=== PATIENT | female | born 1935 | race Caucasian/White ===

== ENCOUNTER → 2017-08-25 09:49 | Outpatient (CLI) | payer MEDICARE, SELFPAY ==
[2017-08-05 09:06] VITALS: BP 112/58; BMI 21.2
--- NOTE | 2017-08-25 09:51 | ECHOD_ITS ---
Reason For Study: bicuspid aortic valve Procedure This was a 2D Doppler, Color Flow transthoracic echocardiogram. Exam performed in department. Left Ventricle Normal LV size. Left ventricular systolic function is normal. The estimated ejection fraction is 60 %. Transmitral diastolic flow velocities suggest mild (stage 1) diastolic dysfunction (reversed pattern). No regional wall motion abnormalities noted. Right Ventricle Normal RV size. Normal systolic function. Atria Normal left atrium. Normal right atrium. Mitral Valve Mild mitral valve prolapse, posterior leaflet. Mild (1+) eccentric mitral valve insufficiency. Tricuspid Valve Normal tricuspid valve. Mild (1+) tricuspid valve insufficiency. Pulmonary artery systolic pressure is 30 mmHg. Aortic Valve Trisinus/trileaflet aortic valve. Mild focal aortic valve calcification. Trivial aortic valve insufficiency. Pulmonic Valve Normal pulmonic valve. Great Vessels Normal aortic root. The pulmonary artery is normal size. Normal inferior vena cava. Pericardium/Pleural No pericardial effusion. MMode/2D Measurements & Calculations LVIDd: 4.0 cm IVSd: 0.84 cm LVOT diam: 2.0 cm LVIDs: 2.7 cm LVPWd: 0.86 cm LVOT area: 3.1 cm2 RVDd: 3.0 cm FS: 32.7 % LA dimension: 3.3 cm LAV(MOD-bp): 38.1 ml LA A4 area: 13.6 cm2 LAV(MOD-bp) Indexed: 25.0 ml/m2 LAV(MOD-sp2): 45.2 ml LAV(MOD-sp4): 30.5 ml RA A4 area: 13.4 cm2 Time Measurements MV dec time: 0.18 sec Doppler Measurements & Calculations MV E max indra: 93.4 cm/sec Lat Peak E' Indra: 7.5 cm/sec Med Peak E' Indra: 7.7 cm/sec MV A max indra: 104.6 cm/sec E/E' lat: 12.5 E/E' med: 12.1 MV E/A: 0.89 Ao V2 max: 179.3 cm/sec LV V1 max: 98.9 cm/sec SV(LVOT): 67.6 ml Ao max P.9 mmHg LV V1 max P.9 mmHg Ao V2 mean: 124.6 cm/sec LV V1 mean P.9 mmHg Ao mean P.9 mmHg LV V1 mean: 64.8 cm/sec Ao V2 VTI: 40.1 cm LV V1 VTI: 22.0 cm SUKHDEEP(I,D): 1.7 cm2 SUKHDEEP(V,D): 1.7 cm2 PA V2 max: 67.0 cm/sec TR max indra: 257.6 cm/sec TR max P.6 mmHg Interpretation Summary Normal LV size. Left ventricular systolic function is normal. The estimated ejection fraction is 60 %. Transmitral diastolic flow velocities suggest mild (stage 1) diastolic dysfunction (reversed pattern). Mild mitral valve prolapse, posterior leaflet Mild (1+) eccentric mitral valve insufficiency. Ordering Physician: Charles Sandy Referring Physician: Dakotah Lester Performed By: Lazara Willis, LESLYE, RVT
== END ==
PROVIDERS: Family Provider Family Medicine; PCP Family Medicine; Visit Provider Internal Medicine Cardiovascular Disease
DX: R94.31 Abnormal electrocardiogram [ECG] [EKG] (principal)
CPT/HCPCS: 93306

== ENCOUNTER → 2018-04-13 06:48 | Outpatient (CLI) | payer MEDICARE, SELFPAY ==
[2018-04-13 08:21] LABS: Absolute Lymphocyte Count 2.82 X10^3/ul (0.83-4.51); Absolute Neutrophil Count 2.7 X10^3/uL (2.0-7.7); Basophil# 0.03 X10^3/uL; Basophil% 0.5 % (0-1); Eosinophil# 0.12 X10^3/uL; Eosinophils% 1.9 % (0-5); Hematocrit 41.7 % (37-47); Hemoglobin 13.3 g/dl (12.0-15.0); Lymphocyte # 2.82 X10^3/ul (4.0); Mean Corp Hgb Conc 31.9 g/gl (32-36); Mean Corpuscular Hgb 30.2 pg (27.0-32.0); Mean Corpuscular Volume 94.6 fL (81-99); Mean Platelet Vol. 9.1 fl (6.2-12.0); Monocyte# 0.63 X10^3/uL; Neutrophil # 2.66 X10^3/uL (2.7-7.7); Neutrophil % 42.4 % (47-70); POSITIVE COUNT NO; POSITIVE DIFFERENTIAL NO; POSITIVE MORPHOLOGY NO; Platelet Count 285 K/mm3 (150-450); RBC Distribution Width CV 12.6 % (11.6-14.6); RBC Distribution Width SD 43.2 fl (35.1-43.9); Red Blood Count 4.41 M/mm3 (4.2-5.4); White Blood Count 6.3 K/mm3 (4.4-11.0)
[2018-04-13 08:33] LABS: Microalbumin,Random Urine 5.5 mg/L (NO RANGE EST.); Microalbumin:Creatinine Ratio 10.6 mg/g CRE (<30 mg/g CRE)
[2018-04-13 09:03] LABS: ALB/GLOB Ratio 0.9 RATIO (0.9-2.4); AST(SGOT) 23 U/L (15-37); Alanine Aminotransfer ALT/SGPT 24 U/L (13-56); Albumin, Serum 3.6 g/dL (3.2-5.0); Alkaline Phosphatase 103 U/L (45-117); Anion Gap 9 (5-15); BUN 18 mg/dL (7-18); BUN/Creat Ratio 17.6 RATIO (10-20); Calcium,Total 9.3 mg/dL (8.5-10.1); Chloride 100 mmol/L (98-107); Cholesterol 273 mg/dL (200); Creatinine, Serum 1.02 mg/dL (0.55-1.02); EST Glomerular Filtration Rate 55 mL/min (>60); Est Glom Filt Rate - Afr Amer 67 mL/min (>60); Glucose 87 mg/dL (74-106); High Density Lipoprotein 93 mg/dL; Potassium 3.8 mmol/L (3.5-5.1); Protein, Total 7.6 g/dL (6.4-8.2); Sodium Level 140 mmol/L (136-145); T4 Free Direct 0.87 ng/dL (0.76-1.46); Thyroid Stim Hormone (TSH) 5.41 uIU/mL (0.358-3.74); Triglycerides 116 mg/dL; Very Low Density Lipoprotein 23 mg/dL (5-40)
== END ==
PROVIDERS: Family Provider Family Medicine; PCP Family Medicine; Referring Provider Family Medicine; Visit Provider Family Medicine
DX: I10 Essential (primary) hypertension (principal); E03.9 Hypothyroidism, unspecified; E78.5 Hyperlipidemia, unspecified
CPT/HCPCS: 36415; 80053; 80061; 82043; 82570; 84439; 84443; 85025

== ENCOUNTER → 2018-04-15 13:51 | Outpatient (CLI) | payer MEDICARE, SELFPAY ==
--- NOTE | 2018-04-15 13:54 | BD_ITS ---
STUDY: DUAL ENERGY X-RAY ABSORPTIOMETRY / DXA REASON FOR EXAM: Female, 82 years old. The patient is postmenopausal. Loss of height. TECHNIQUE: Bone Mineral Density (BMD) measurements of lumbar spine and bilateral hips were obtained. COMPARISON: Comparison is made with prior study dated August 04, 2013. FINDINGS: Lumbar Spine (L1-L4): g/cm2 (0.980) / T-score (-1.8) / Z-score (0.1) Findings are suggestive of osteopenia with a moderate fracture risk. Left Femur Total: g/cm2 (0.868) / T-score (-1.1) / Z-score (1.1) Left Femoral Neck: g/cm2 (0.791) / T-score (-1.8) / Z-score (0.5) Right Femur Total: g/cm2 (0.814) / T-score (-1.5) / Z-score (0.7) Right Femoral Neck: g/cm2 (0.761) / T-score (-2.0) / Z-score (0.3) The T-Scores on the most recent prior examination were: Lumbar Spine (L1-L4): There has been improvement of bone density since the previous examination. Left Femur Total: which represents a worsening of 4.6%. Right Femur Total: which represents a worsening of 4.3%. BD/Dexa Bone Density Study IMPRESSION: The patient is considered osteopenic as outlined below according to World Td Organization (WHO) criteria with a moderate fracture risk. There has been worsening of bone density since the previous examination. Reference Information: The T-score is the number of standard deviations above or below the standard which is normal for young adults at their peak bone mineral density. The World Health Organization (WHO) interprets the T-scores as follows: Above -1 Normal bone density Between -1 and -2.5 Osteopenia Equal to / or below -2.5 Osteoporosis As a practical clinical guideline, osteopenia may be graded as follows: Mild -1 through -1.5 Moderate -1.6 through -2.0 Severe -2.1 through -2.4 The Z-score is the number of standard deviations above or below age-matched controls. A Z-score of less than -1.5 would be considered abnormal. References: 1. NIH Osteoporosis and Related Bone Diseases http://www.osteo.org 2. International Society for Clinical Densitometry http://www.iscd.org 3. National Osteoporosis Foundation http://www.nof.org Electronically Signed: Juan Gill MD at 15:19 EDT Tel [phone], Service support ,
== END ==
PROVIDERS: Family Provider Family Medicine; PCP Family Medicine; Referring Provider Family Medicine; Visit Provider Family Medicine
DX: Z78.0 Asymptomatic menopausal state (principal); M85.80 Other specified disorders of bone density and structure, unspecified site
CPT/HCPCS: 77080

== ENCOUNTER → 2018-05-17 10:25 | Outpatient (CLI) | payer MEDICARE, SELFPAY ==
[2017-08-05 09:06] VITALS: BMI 21.2
--- NOTE | 2018-05-17 10:30 | RAD_ITS ---
STUDY: X-RAY CHEST REASON FOR EXAM: Female, 82 years old. Cough TECHNIQUE: PA and lateral COMPARISON: 02/17/2017 FINDINGS: The lungs are clear and expanded. There is no demonstrated pleural abnormality. Normal size heart. Normal mediastinum and yessi. Normal visualized pulmonary arteries. There is atherosclerotic calcification of the aortic arch with tortuosity. Normal visualized thoracic spine. Normal visualized ribs, clavicles, and shoulders. There is no demonstrated abnormality of the visualized soft tissue structures of the upper abdomen. RAD/Chest PA and Lateral IMPRESSION: The lungs are clear and expanded. There is no demonstrated pleural abnormality. Normal size heart. Electronically Signed: Eric Shipley MD at 7:24 EST , Service support ,
== END ==
PROVIDERS: Family Provider Family Medicine; PCP Family Medicine; Referring Provider Family Medicine; Visit Provider Family Medicine
DX: J18.9 Pneumonia, unspecified organism (principal)
CPT/HCPCS: 71046

== ENCOUNTER → 2018-08-05 09:48 | Outpatient (CLI) | payer MEDICARE, SELFPAY ==
[2018-08-05 09:15] VITALS: BMI 21.5
[2018-08-05 11:39] LABS: BNP,B-Type NATRIURETIC PEPTIDE 21.8 pg/mL (0-100)
== END ==
PROVIDERS: Family Provider Family Medicine; PCP Family Medicine; Referring Provider Internal Medicine Cardiovascular Disease; Visit Provider Internal Medicine Cardiovascular Disease
DX: R06.00 Dyspnea, unspecified (principal); I10 Essential (primary) hypertension
CPT/HCPCS: 36415; 83880

== ENCOUNTER → 2019-02-25 11:49 | Outpatient (CLI) | payer MEDICARE, SELFPAY ==
[2018-08-05 09:15] VITALS: BMI 21.5
--- NOTE | 2019-02-25 12:17 | BI_ITS ---
MAMMOGRAPHY - BILATERAL SCREENING REASON FOR EXAM: Female, 83 years old. Routine annual screening examination. PERTINENT HISTORY: Non-contributory. Remote right stereotactic breast biopsy and right excisional breast biopsy. 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 TECHNIQUE: Digital bilateral breast ramón (3D mammographic acquisition) in the CC and MLO projections. 2-D mediolateral oblique (MLO) and craniocaudad (CC) views of both breasts were obtained. CAD: Full Field Digital Mammography with Computer Added Detection was performed. COMPARISON: Comparison is made with prior examination dated February 24, 2017 and March 09, 2015. FINDINGS: Breast Composition: The breasts are heterogeneously dense, which may obscure small masses. Stable asymmetry of breast tissue where the left breast is smaller than the right. A tissue clip marker is once again seen in the deep central slightly medial aspect of the right breast. There are no dominant masses or suspicious calcifications. No other significant abnormalities are identified. There has been no significant change since the prior study. BI/SCREEN MAMM (CAD) W/RAMÓN BILAT IMPRESSION: Stable bilateral screening mammogram. Yearly follow-up mammogram recommended. (A) ASSESSMENT CATEGORY: BIRADS Category 2: Benign. A letter regarding these results will be sent to the patient by the facility within 30 days. Approximately 10% of breast cancers are not detected by mammography. A normal mammogram should not delay biopsy of a clinically suspicious abnormality. [id number] Electronically Signed: Juan Gill, at 13:36 EDT , Service support ,
== END ==
PROVIDERS: Family Provider Family Medicine; PCP Family Medicine; Referring Provider Surgery; Visit Provider Surgery
DX: Z12.31 Encounter for screening mammogram for malignant neoplasm of breast (principal)
CPT/HCPCS: 77063; 77067

== ENCOUNTER → 2019-03-21 12:57 | Outpatient (CLI) | payer MEDICARE, SELFPAY ==
[2019-03-16 07:59] VITALS: BMI 21.5
== END ==
PROVIDERS: Family Provider Family Medicine; PCP Family Medicine; Referring Provider Surgery; Visit Provider Surgery
DX: Z12.11 Encounter for screening for malignant neoplasm of colon (principal)
CPT/HCPCS: 82274

== ENCOUNTER → 2019-04-15 07:24 | Outpatient (CLI) | payer MEDICARE, SELFPAY ==
[2019-03-16 07:59] VITALS: BMI 21.5
[2019-04-15 08:18] LABS: Absolute Neutrophil Count 2.5 X10^3/uL (2.0-7.7); Basophil# 0.03 X10^3/uL; Basophil% 0.6 % (0-1); Eosinophils% 1.8 % (0-5); Hematocrit 43.4 % (37-47); Lymphocyte % 42.3 % (19-41); Mean Corp Hgb Conc 32.3 g/dL (32-36); Mean Corpuscular Hgb 30.2 pg (27.0-32.0); Mean Corpuscular Volume 93.5 fL (81-99); Mean Platelet Vol. 9.2 fl (6.2-12.0); Monocyte# 0.54 X10^3/uL; Monocyte% 9.9 % (0-10); NRBC Flagged by Analyzer 0 % (0-5); Neutrophil # 2.46 X10^3/uL (2.7-7.7); Neutrophil % 45.2 % (47-70); Platelet Count 304 K/mm3 (150-450); RBC Distribution Width CV 11.8 % (11.6-14.6); RBC Distribution Width SD 40.4 fl (35.1-43.9); Red Blood Count 4.64 M/mm3 (4.2-5.4); White Blood Count 5.4 K/mm3 (4.4-11.0)
[2019-04-15 08:41] LABS: AST(SGOT) 20 U/L (15-37); Alanine Aminotransfer ALT/SGPT 23 U/L (13-56); Albumin, Serum 3.8 g/dL (3.2-5.0); Alkaline Phosphatase 119 U/L (45-117); Anion Gap 5 (5-15); BUN 19 mg/dL (7-18); BUN/Creat Ratio 21.5 RATIO (10-20); Calcium,Total 9.3 mg/dL (8.5-10.1); Chloride 100 mmol/L (98-107); Cholesterol 254 mg/dL (200); Creatinine, Serum 0.88 mg/dL (0.55-1.02); EST Glomerular Filtration Rate 65 mL/min (>60); Est Glom Filt Rate - Afr Amer 78 mL/min (>60); Globulin 3.7 g/dL (2.2-4.2); Glucose 96 mg/dL (74-106); High Density Lipoprotein 89 mg/dL; Protein, Total 7.5 g/dL (6.4-8.2); Sodium Level 137 mmol/L (136-145); T4 Free Direct 1.21 ng/dL (0.76-1.46); Thyroid Stim Hormone (TSH) 0.08 uIU/mL (0.358-3.74); Triglycerides 139 mg/dL; Very Low Density Lipoprotein 28 mg/dL (5-40)
== END ==
PROVIDERS: Family Provider Family Medicine; PCP Family Medicine; Referring Provider Family Medicine; Visit Provider Family Medicine
DX: E78.5 Hyperlipidemia, unspecified (principal); E03.9 Hypothyroidism, unspecified; E55.9 Vitamin D deficiency, unspecified
CPT/HCPCS: 36415; 80053; 80061; 83735; 84439; 84443; 85025

== ENCOUNTER → 2019-07-19 07:39 | Outpatient (CLI) | payer MEDICARE, SELFPAY ==
[2019-03-16 07:59] VITALS: BMI 21.5
[2019-07-19 09:27] LABS: Cholesterol 278 mg/dL (200); Free T3 3.4 pg/mL (2.18-3.98); High Density Lipoprotein 99 mg/dL; T4 Free Direct 1.24 ng/dL (0.76-1.46); Thyroid Stim Hormone (TSH) 0.28 uIU/mL (0.358-3.74); Triglycerides 134 mg/dL; Very Low Density Lipoprotein 27 mg/dL (5-40)
== END ==
PROVIDERS: PCP Family Medicine; Referring Provider Family Medicine; Visit Provider Family Medicine
DX: Z00.00 Encounter for general adult medical examination without abnormal findings (principal); E03.9 Hypothyroidism, unspecified
CPT/HCPCS: 36415; 80061; 84439; 84443; 84481

== ENCOUNTER → 2019-10-17 06:42 | Outpatient (CLI) | payer MEDICARE, SELFPAY ==
[2019-08-09 08:40] VITALS: BMI 21.4
[2019-10-17 08:00] LABS: T4 Free Direct 1.15 ng/dL (0.76-1.46); Thyroid Stim Hormone (TSH) 0.81 uIU/mL (0.358-3.74)
== END ==
PROVIDERS: PCP Family Medicine; Referring Provider Family Medicine; Visit Provider Family Medicine
DX: E03.9 Hypothyroidism, unspecified (principal)
CPT/HCPCS: 36415; 84439; 84443

== ENCOUNTER → 2020-01-23 14:46 | Outpatient (CLI) | payer MEDICARE, SELFPAY ==
[2019-08-09 08:40] VITALS: BMI 21.4
[2020-01-23 17:54] LABS: Absolute Lymphocyte Count 1.96 X10^3/uL (0.83-4.51); Absolute Neutrophil Count 3.7 X10^3/uL (2.0-7.7); Basophil# 0.04 X10^3/uL; Basophil% 0.6 % (0-1); Eosinophil# 0.04 X10^3/uL; Eosinophils% 0.6 % (0-5); Hematocrit 38.8 % (37-47); Hemoglobin 12.2 g/dL (12.0-15.0); Lymphocyte # 1.96 X10^3/ul (4.0); Lymphocyte % 31.4 % (19-41); Mean Corp Hgb Conc 31.4 g/dL (32-36); Mean Corpuscular Hgb 30.7 pg (27.0-32.0); Mean Corpuscular Volume 97.7 fL (81-99); Mean Platelet Vol. 9.4 fl (6.2-12.0); Monocyte# 0.48 X10^3/uL; Monocyte% 7.7 % (0-10); NRBC Flagged by Analyzer 0 % (0-5); Neutrophil # 3.71 X10^3/uL (2.7-7.7); Neutrophil % 59.4 % (47-70); Platelet Count 310 K/mm3 (150-450); RBC Distribution Width CV 12.4 % (11.6-14.6); RBC Distribution Width SD 44.4 fl (35.1-43.9); Red Blood Count 3.97 M/mm3 (4.2-5.4); White Blood Count 6.3 K/mm3 (4.4-11.0)
[2020-01-23 18:15] LABS: Vitamin D,25 Hydroxy 58.7 ng/mL
[2020-01-23 18:22] LABS: Microalbumin,Random Urine < 5.0 mg/L (NO RANGE EST.)
[2020-01-23 18:32] LABS: ALB/GLOB Ratio 0.9 RATIO (0.9-2.4); AST(SGOT) 16 U/L (15-37); Alanine Aminotransfer ALT/SGPT 23 U/L (13-56); Albumin, Serum 3.5 g/dL (3.2-5.0); Alkaline Phosphatase 106 U/L (45-117); Anion Gap 4 (5-15); BUN 16 mg/dL (7-18); BUN/Creat Ratio 17.8 RATIO (10-20); Calcium,Total 9.1 mg/dL (8.5-10.1); Chloride 101 mmol/L (98-107); EST Glomerular Filtration Rate 63 mL/min (>60); Est Glom Filt Rate - Afr Amer 77 mL/min (>60); Globulin 3.8 g/dL (2.2-4.2); Glucose 103 mg/dL (74-106); Potassium 3.9 mmol/L (3.5-5.1); Protein, Total 7.3 g/dL (6.4-8.2); Sodium Level 136 mmol/L (136-145); T4 Total, Thyroxin 9.7 ug/dL (4.8-13.9); Thyroid Stim Hormone (TSH) 1.56 uIU/mL (0.358-3.74)
[2020-01-26 15:32] LABS: Zinc, Plasma or Serum 68 ug/dL (56-134)
== END ==
PROVIDERS: PCP Family Medicine; Referring Provider Family Medicine; Visit Provider Family Medicine
DX: I10 Essential (primary) hypertension (principal); E03.9 Hypothyroidism, unspecified; M85.80 Other specified disorders of bone density and structure, unspecified site
CPT/HCPCS: 36415; 80053; 82043; 82306; 82570; 84436; 84443; 84630; 85025

== ENCOUNTER → 2020-02-29 08:14 | Outpatient (CLI) | payer MEDICARE, SELFPAY ==
[2019-08-09 08:40] VITALS: BMI 21.4
--- NOTE | 2020-02-29 08:14 | BI_ITS ---
MAMMOGRAPHY - BILATERAL SCREENING REASON FOR EXAM: Female, 84 years old. Routine annual screening examination. 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 Prior right excisional breast biopsy and stereotactic breast biopsy. TECHNIQUE: Digital bilateral breast ramón (3D mammographic acquisition) in the CC and MLO projections. 2-D mediolateral oblique (MLO) and craniocaudad (CC) views of both breasts were obtained. CAD: Full Field Digital Mammography with Computer Added Detection was performed. COMPARISON: Comparison is made with prior examination dated 02/25/2019. FINDINGS: Breast Composition: Stable breast asymmetry with more breast tissue is seen in the right breast as compared to the left side. There is heterogeneous density of the right breast. A tissue clip marker is once again seen in the deep central slightly medial portion of the right breast. There are no dominant masses or suspicious calcifications. No other significant abnormalities are identified. There has been no significant change since the prior study. BI/SCREEN MAMM (CAD) W/RAMÓN BILAT IMPRESSION: Stable bilateral screening mammogram. Yearly follow-up mammogram recommended. (A) ASSESSMENT CATEGORY: BIRADS Category 2: Benign. A letter regarding these results will be sent to the patient by the facility within 30 days. Approximately 10% of breast cancers are not detected by mammography. A normal mammogram should not delay biopsy of a clinically suspicious abnormality. [id number] Electronically Signed: Juan Gill, at 9:10 EDT , Service support ,
== END ==
PROVIDERS: PCP Family Medicine; Referring Provider Surgery; Visit Provider Surgery
DX: Z12.31 Encounter for screening mammogram for malignant neoplasm of breast (principal)
CPT/HCPCS: 77063; 77067

== ENCOUNTER → 2020-05-18 16:40 | Outpatient (CLI) | payer MEDICARE, SELFPAY ==
[2020-03-06 05:30] VITALS: BMI 21.4
== END ==
PROVIDERS: PCP Family Medicine; Visit Provider Family Medicine
DX: U07.1 COVID-19 (principal)
CPT/HCPCS: 87635; U0003

== ENCOUNTER → 2020-07-13 07:12 | Outpatient (CLI) | payer MEDICARE, SELFPAY ==
[2020-03-06 05:30] VITALS: BMI 21.4
[2020-07-13 10:08] LABS: AST(SGOT) 13 U/L (15-37); Alanine Aminotransfer ALT/SGPT 22 U/L (13-56); Albumin, Serum 3.8 g/dL (3.2-5.0); Alkaline Phosphatase 113 U/L (45-117); Anion Gap 4 (5-15); BUN 21 mg/dL (7-18); BUN/Creat Ratio 23.4 RATIO (10-20); Calcium,Total 9.6 mg/dL (8.5-10.1); Chloride 101 mmol/L (98-107); EST Glomerular Filtration Rate 63 mL/min (>60); Est Glom Filt Rate - Afr Amer 77 mL/min (>60); Globulin 3.8 g/dL (2.2-4.2); Glucose 85 mg/dL (74-106); Potassium 3.9 mmol/L (3.5-5.1); Protein, Total 7.6 g/dL (6.4-8.2); Sodium Level 137 mmol/L (136-145)
[2020-07-13 10:25] LABS: Microalbumin,Random Urine 5.3 mg/L (NO RANGE EST.); Microalbumin:Creatinine Ratio 8.5 mg/g CRE (<30 mg/g CRE)
== END ==
PROVIDERS: PCP Family Medicine; Referring Provider Family Medicine; Visit Provider Family Medicine
DX: I10 Essential (primary) hypertension (principal)
CPT/HCPCS: 36415; 80053; 82043; 82570

== ENCOUNTER → 2021-01-04 07:13 | Outpatient (CLI) | payer MEDICARE, SELFPAY ==
[2020-08-14 07:28] VITALS: BMI 21.7
[2021-01-04 10:25] LABS: ALB/GLOB Ratio 1.1 RATIO (0.9-2.4); AST(SGOT) 24 U/L (15-37); Alanine Aminotransfer ALT/SGPT 23 U/L (13-56); Albumin, Serum 3.5 g/dL (3.2-5.0); Alkaline Phosphatase 105 U/L (45-117); Anion Gap 9 (5-15); BUN 19 mg/dL (7-18); BUN/Creat Ratio 20.2 RATIO (10-20); Calcium,Total 8.9 mg/dL (8.5-10.1); Chloride 96 mmol/L (98-107); Cholesterol 254 mg/dL (200); Creatinine, Serum 0.94 mg/dL (0.55-1.02); EST Glomerular Filtration Rate 60 mL/min (>60); Est Glom Filt Rate - Afr Amer 73 mL/min (>60); Globulin 3.3 g/dL (2.2-4.2); Glucose 86 mg/dL (74-106); High Density Lipoprotein 89 mg/dL; Potassium 4.3 mmol/L (3.5-5.1); Protein, Total 6.8 g/dL (6.4-8.2); Sodium Level 135 mmol/L (136-145); T4 Free Direct 1.06 ng/dL (0.76-1.46); Thyroid Stim Hormone (TSH) 7.15 uIU/mL (0.358-3.74); Triglycerides 163 mg/dL; Very Low Density Lipoprotein 33 mg/dL (5-40)
== END ==
PROVIDERS: PCP Family Medicine; Referring Provider Family Medicine; Visit Provider Family Medicine
DX: E03.9 Hypothyroidism, unspecified (principal); E78.5 Hyperlipidemia, unspecified; G25.81 Restless legs syndrome
CPT/HCPCS: 36415; 80053; 80061; 84439; 84443

== ENCOUNTER 2021-02-06 14:00 | Outpatient (RCR) | payer MEDICARE, SELFPAY ==
[2020-08-14 07:28] VITALS: BMI 21.7
--- NOTE | 2021-01-23 15:22 | HP.PTEVAL ---
Patient's Visit Information MICHAEL PARADA is a 85 year old F referred to Physical Therapy by Dr. Dakotah Lester MD with a diagnosis of LBP. Date of Evaluation: 01/23/21 Physical Therapist: Live Banks, PT, ATC - Visit Plan Frequency: 1x/Week Duration: 3 Weeks Plan: Instruct pt on HEP of core strengthening over the next 2-3 visits - Subjective Pt reports she has had LBP several times in the past, but had surgery which always helped. Pt notes this episode began in June of 2020. Pt reports she was house cleaning and believes this may have caused her pain. Pt reports the doctor gave her meds and ex's at that time and the pain went away. However, her pain returned severely in November and so she started doing her ex's and the pain eventually went away. Pt reports she has been pain free for about one week now, but she doesnt want the pain to return so she came to therapy today to get started on some strengthening ex's to make sure this pain doesnt return. No LE tingling or numbness in LE's at this time. No sleep difficulty secondary to the pain. Pt has 0/10 pain this date. - Pain LBP Pain Intensity (Out of 10): 0 - Objective Neuro: B LE sensation is WNL to light touch. B achilles reflex= 2/3. MMT: B LE's are grossly 5/5 throughout. ROM: Pt is severely limited with ext ROM. All other ranges are WNL. Repeated movements: SKTC/DKTC 10 sec x 3 reps ea felt good today. Gait: Pt is able to ambulate greater than 600' without difficulty - Goals Goal 1:: Decrease LBP x 50% to aid with sleep Goal Time Frame: 4-6 Weeks Goal 2:: Increase core strengthening x 1 grade to prevent future episodes of LBP Goal Time Frame: 4-6 Weeks Goal 3:: I with HEP Goal Time Frame: 4-6 Weeks - Rehabilitation Potential Physical Therapy Diagnosis: Pt has LBP and difficulty with IADL's secondary to degenerative changes of the L/S Rehabilitation Potential: Good - Anticipated Interventions Patient/Client Instruction: Educate patient on: Condition, Plan of Care For the Purpose of:: To improve self management Therapeutic Exercise to Include: Strength training, Endurance training, Postural training, Dynamic Lumbar Stabilization For the Purpose of:: To decrease pain, To improve muscle performance and motor function Thank you for the opportunity to evaluate your patient. For Medicare and Medicare HMO plans, please review the plan of care and approve it. It will need to be FAXED BACK to us at [phone] for Medicare purposes. For Medicare only, by signing this I certify the plan of care. Please let me know if there are questions or concerns regarding this plan of care. Physician Signature: Date:
--- NOTE | 2021-02-06 14:56 | HP.PTDCSUM ---
It has been my pleasure to treat MICHAEL PARADA referred by Dr. Dakotah Lester MD, with the diagnosis of LBP for a total of 3 visit(s). Discharge Date: Please see the following information for a summary of their discharge status. Subjective: I dont have any pain today. I am ready to be discharged LBP Pain Intensity (Out of 10): 0 % Improvement: 75 Objective/Function: Pt is now I with HEP. Rx goals achieved Goal 1:: Decrease LBP x 50% to aid with sleep Goal Progress: Goal Met Goal 2:: Increase core strengthening x 1 grade to prevent future episodes of LBP Goal Progress: Progressing Goal 3:: I with HEP Goal Progress: Goal Met Plan: Discharge If there are questions or concerns regarding this patient's physical therapy, please feel free to call me at [phone]. Thank you for the referral of this patient. Sincerely, Live Banks, PT, ATC Balance/Gait/Functional tests - Balance/Special Test Scores Lower Extremity Functional Score: 73
== END 2021-02-06 19:00 | disposition home or self-care (01) ==
LOC: PT 14:00
PROVIDERS: PCP Family Medicine; Referring Provider Family Medicine; Visit Provider Family Medicine
DX: R29.3 Abnormal posture (principal); R45.1 Restlessness and agitation
CPT/HCPCS: 97110; 97161

== ENCOUNTER → 2021-02-27 08:38 | Outpatient (CLI) | payer MEDICARE, SELFPAY ==
[2021-02-27 10:50] LABS: Ferritin 106 ng/mL (8-252); Free T3 3.2 pg/mL (2.18-3.98); T4 Free Direct 1.18 ng/dL (0.76-1.46); Thyroid Stim Hormone (TSH) 0.76 uIU/mL (0.358-3.74)
== END ==
PROVIDERS: PCP Family Medicine; Referring Provider Family Medicine; Visit Provider Family Medicine
DX: G25.81 Restless legs syndrome (principal); E03.9 Hypothyroidism, unspecified
CPT/HCPCS: 36415; 82728; 84439; 84443; 84481

== ENCOUNTER → 2021-04-22 | Outpatient (CLI) | payer MEDICARE, SELFPAY | END | disposition home or self-care (01) | PROVIDERS: PCP Family Medicine; Visit Provider Family Medicine | DX: Z20.822 Contact with and (suspected) exposure to COVID-19 (principal) | CPT/HCPCS: 87633; 87635; U0005; U0003 ==

== ENCOUNTER 2021-09-23 07:39 | Outpatient (CLI) | payer MEDICARE, SELFPAY ==
[2021-09-23 08:11] LABS: Hematocrit 40.7 % (37-47); Hemoglobin 13.5 g/dL (12.0-15.0); Mean Corp Hgb Conc 33.2 g/dL (32-36); Mean Corpuscular Hgb 29.9 pg (27.0-32.0); Mean Platelet Vol. 8.8 fl (6.2-12.0); Platelet Count 284 K/mm3 (150-450); RBC Distribution Width CV 11.9 % (11.6-14.6); RBC Distribution Width SD 39.5 fl (35.1-43.9); Red Blood Count 4.52 M/mm3 (4.2-5.4); White Blood Count 4.8 K/mm3 (4.4-11.0)
[2021-09-23 08:32] LABS: Microalbumin,Random Urine 5.3 mg/L (NO RANGE EST.); Microalbumin:Creatinine Ratio 5.2 mg/g CRE (<30 mg/g CRE)
[2021-09-23 08:53] LABS: ALB/GLOB Ratio 0.9 RATIO (0.9-2.4); AST(SGOT) 19 U/L (15-37); Alanine Aminotransfer ALT/SGPT 20 U/L (13-56); Albumin, Serum 3.5 g/dL (3.2-5.0); Alkaline Phosphatase 125 U/L (45-117); Anion Gap 2 (5-15); BUN 15 mg/dL (7-18); BUN/Creat Ratio 15.3 RATIO (10-20); Calcium,Total 9.4 mg/dL (8.5-10.1); Chloride 100 mmol/L (98-107); Creatinine, Serum 0.98 mg/dL (0.55-1.02); EST Glomerular Filtration Rate 57 mL/min (>60); Est Glom Filt Rate - Afr Amer 69 mL/min (>60); Glucose 100 mg/dL (74-106); Potassium 3.8 mmol/L (3.5-5.1); Protein, Total 7.5 g/dL (6.4-8.2); Sodium Level 136 mmol/L (136-145); T4 Free Direct 1.14 ng/dL (0.76-1.46); Thyroid Stim Hormone (TSH) 1.27 uIU/mL (0.358-3.74)
== END 2021-09-23 23:59 | disposition home or self-care (01) ==
LOC: LAB 07:41
PROVIDERS: PCP Family Medicine; Referring Provider Family Medicine; Visit Provider Family Medicine
DX: I10 Essential (primary) hypertension (principal); E03.9 Hypothyroidism, unspecified; G25.81 Restless legs syndrome
CPT/HCPCS: 36415; 80053; 82043; 82570; 84439; 84443; 85027

== ENCOUNTER 2021-10-10 07:46 | Outpatient (CLI) | payer MEDICARE, SELFPAY ==
--- NOTE | 2021-10-10 07:49 | ECHOD_ITS ---
Reason For Study: MVP Procedure This was a 2D Doppler, Color Flow transthoracic echocardiogram. Exam performed in department. Left Ventricle Normal LV size. Left ventricular systolic function is normal. The estimated ejection fraction is 55 %. Stage 1 diastolic dysfunction. No regional wall motion abnormalities noted. Right Ventricle Normal RV size. Normal systolic function. Atria Normal left atrium. Normal right atrium. Mitral Valve Bileaflet diffuse mitral valve thickening. Mild (1+) eccentric mitral valve insufficiency. Tricuspid Valve Normal tricuspid valve. Mild (1+) tricuspid valve insufficiency. Pulmonary artery systolic pressure is 30 mmHg. Aortic Valve Trisinus/trileaflet aortic valve. Mild focal aortic valve calcification. Mild (1+) eccentric aortic valve insufficiency. Pulmonic Valve Normal pulmonic valve. Great Vessels Normal aortic root. The pulmonary artery is normal size. Normal inferior vena cava. Pericardium/Pleural No pericardial effusion. MMode/2D Measurements & Calculations LVIDd: 4.4 cm IVSd: 0.80 cm Ao root diam: 3.1 cm LVIDs: 2.7 cm LVPWd: 0.80 cm RVDd: 3.1 cm FS: 38.5 % LAV(MOD-bp): 36.6 ml LVAd ap4: 17.6 cm2 LVAd ap2: 23.8 cm2 LAV(MOD-bp) Indexed: 24.0 ml/m2 LVLd ap4: 5.9 cm LVLd ap2: 7.1 cm LAV(MOD-sp2): 32.2 ml EDV(MOD-sp4): 44.7 ml EDV(MOD-sp2): 67.1 ml LAV(MOD-sp4): 32.6 ml EDV(sp4-el): 44.4 ml EDV(sp2-el): 67.1 ml LVAs ap4: 10.8 cm2 LVAs ap2: 13.5 cm2 LVLs ap4: 5.2 cm LVLs ap2: 5.6 cm ESV(MOD-sp4): 20.8 ml ESV(MOD-sp2): 28.2 ml ESV(sp4-el): 19.1 ml ESV(sp2-el): 27.5 ml EF(MOD-sp4): 53.5 % EF(MOD-sp2): 58.0 % EF(sp4-el): 57.1 % SV(MOD-sp4): 23.9 ml SV(MOD-sp2): 38.9 ml SV(sp4-el): 25.3 ml LA dimension(2D): 3.1 cm LA A4 area: 13.2 cm2 RA A4 area: 9.8 cm2 Time Measurements MV dec time: 0.18 sec Doppler Measurements & Calculations MV E max indra: 72.3 cm/sec Lat Peak E' Indra: 6.3 cm/sec Med Peak E' Indra: 5.7 cm/sec MV A max indra: 104.0 cm/sec E/E' lat: 11.5 E/E' med: 12.6 MV E/A: 0.69 Ao V2 max: 164.3 cm/sec LV V1 max: 73.0 cm/sec PA V2 max: 70.0 cm/sec Ao max P.8 mmHg LV V1 max P.1 mmHg TR max indra: 251.4 cm/sec TR max P.3 mmHg ECHO/Echo Complete Interpretation Summary Normal LV size. Left ventricular systolic function is normal. The estimated ejection fraction is 55 %. Mild (1+) eccentric mitral valve insufficiency. Mild focal aortic valve calcification. Mild (1+) eccentric aortic valve insufficiency. Stage 1 diastolic dysfunction. Pulmonary artery systolic pressure is 30 mmHg. Ordering Physician: Lissette Avila Referring Physician: Dakotah Lester Performed By: Lazara Willis, LESLYE, RVT
== END 2021-10-10 23:59 | disposition home or self-care (01) ==
PROVIDERS: PCP Family Medicine; Referring Provider Internal Medicine Cardiovascular Disease; Visit Provider Internal Medicine Cardiovascular Disease
DX: I34.1 Nonrheumatic mitral (valve) prolapse (principal)
CPT/HCPCS: 93306

== ENCOUNTER → 2022-05-05 | Outpatient (CLI) | payer MEDICARE, SELFPAY ==
[2022-05-05 10:34] LABS: Vitamin D,25 Hydroxy 87.1 ng/mL
[2022-05-05 10:41] LABS: ALB/GLOB Ratio 0.9 RATIO (0.9-2.4); AST(SGOT) 14 U/L (15-37); Alanine Aminotransfer ALT/SGPT 22 U/L (13-56); Albumin, Serum 3.3 g/dL (3.2-5.0); Alkaline Phosphatase 107 U/L (45-117); Anion Gap 3 (5-15); BUN 14 mg/dL (7-18); BUN/Creat Ratio 17.5 RATIO (10-20); Calcium,Total 9.4 mg/dL (8.5-10.1); Chloride 105 mmol/L (98-107); Cholesterol 240 mg/dL (200); EST Glomerular Filtration Rate 72 mL/min (>60); Est Glom Filt Rate - Afr Amer 87 mL/min (>60); Globulin 3.6 g/dL (2.2-4.2); Glucose 96 mg/dL (74-106); High Density Lipoprotein 94 mg/dL; Potassium 4.4 mmol/L (3.5-5.1); Protein, Total 6.9 g/dL (6.4-8.2); Sodium Level 140 mmol/L (136-145); Thyroid Stim Hormone (TSH) 0.17 uIU/mL (0.358-3.74); Triglycerides 134 mg/dL; Very Low Density Lipoprotein 27 mg/dL (5-40)
== END | disposition home or self-care (01) ==
LOC: MFPLAB 08:03
PROVIDERS: PCP Family Medicine; Referring Provider Family Medicine; Visit Provider Family Medicine
DX: M85.80 Other specified disorders of bone density and structure, unspecified site (principal); E03.9 Hypothyroidism, unspecified; E78.5 Hyperlipidemia, unspecified
CPT/HCPCS: 36415; 80053; 80061; 82306; 84443

== ENCOUNTER → 2022-06-26 | Outpatient (CLI) | payer MEDICARE, SELFPAY ==
--- NOTE | 2022-06-26 13:48 | BI_ITS ---
MAMMOGRAPHY - BILATERAL SCREENING REASON FOR EXAM: Female, 86 years old. Routine annual screening examination. PERTINENT HISTORY: No family history. 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 Prior right excisional breast biopsy and stereotactic breast biopsy. TECHNIQUE: Digital bilateral breast ramón (3D mammographic acquisition) in the CC and MLO projections. 2-D mediolateral oblique (MLO) and craniocaudad (CC) views of both breasts were obtained. CAD: Full Field Digital Mammography with Computer Added Detection was performed. COMPARISON: 02/29/2020, 02/25/2019. FINDINGS: Breast Composition: The breasts are heterogeneously dense, which may obscure small masses. Stable left breast nipple inversion and asymmetrically decreased breast volume. Stable benign-appearing bilateral breast calcifications. No suspicious masses or suspicious calcifications. Stable right breast biopsy marker. No other significant abnormalities are identified. There has been no significant change since the prior study. BI/SCRN MAMM (CAD)W/RAMÓN BILAT IMPRESSION: Stable bilateral screening mammogram. Yearly follow-up mammogram recommended. (A) ASSESSMENT CATEGORY: BIRADS Category 2: Benign. A letter regarding these results will be sent to the patient by the facility within 30 days. Approximately 10% of breast cancers are not detected by mammography. A normal mammogram should not delay biopsy of a clinically suspicious abnormality. Electronically Signed: Art Shane, at 9:45 EST ,
--- NOTE | 2022-06-26 13:52 | BD_ITS ---
STUDY: DUAL ENERGY X-RAY ABSORPTIOMETRY / DXA REASON FOR EXAM: Female, 86 years old. M85.89 TECHNIQUE: Bone Mineral Density (BMD) measurements of lumbar spine and bilateral hips were obtained. COMPARISON: Comparison is made with prior study done 04/15/2018. FINDINGS: Lumbar Spine (L1-L4): g/cm2 (1.185) / T-score (1.9) / Z-score (4.6) Findings are suggestive of normal bone density with a low fracture risk. Left Femur Total: g/cm2 (0.809) / T-score (-1.1) / Z-score (1.2) Left Femoral Neck: g/cm2 (0.642) / T-score (-1.9) / Z-score (0.7) Right Femur Total: g/cm2 (0.763) / T-score (-1.5) / Z-score (0.9) Right Femoral Neck: g/cm2 (0.617) / T-score (-2.1) / Z-score (0.4) The T-Scores on the most recent prior examination were: Lumbar Spine (L1-L4): There has been improvement of bone density since the previous examination. Left Femur Total: which represents an improvement of 0.4%. Right Femur Total: which represents an improvement of 1.3%. BD/Dexa Bone Density Study IMPRESSION: The patient is considered osteopenic as outlined below according to World Td Organization (WHO) criteria with a moderate fracture risk. There has been improvement of bone density since the previous examination. Reference Information: The T-score is the number of standard deviations above or below the standard which is normal for young adults at their peak bone mineral density. The World Health Organization (WHO) interprets the T-scores as follows: Above -1 Normal bone density Between -1 and -2.5 Osteopenia Equal to / or below -2.5 Osteoporosis As a practical clinical guideline, osteopenia may be graded as follows: Mild -1 through -1.5 Moderate -1.6 through -2.0 Severe -2.1 through -2.4 The Z-score is the number of standard deviations above or below age-matched controls. A Z-score of less than -1.5 would be considered abnormal. References: 1. NIH Osteoporosis and Related Bone Diseases www osteo.org 2. International Society for Clinical Densitometry www iscd.org 3. National Osteoporosis Foundation www nof.org Electronically Signed: Juan Gill MD at 10:37 EST ,
== END | disposition home or self-care (01) ==
LOC: OPBD 13:43
PROVIDERS: PCP Family Medicine; Visit Provider Family Medicine
DX: Z12.31 Encounter for screening mammogram for malignant neoplasm of breast (principal); N64.59 Other signs and symptoms in breast; M85.80 Other specified disorders of bone density and structure, unspecified site; M81.0 Age-related osteoporosis without current pathological fracture
CPT/HCPCS: 77063; 77067; 77080

== ENCOUNTER → 2022-07-10 | Outpatient (CLI) | payer MEDICARE, SELFPAY ==
--- NOTE | 2022-07-10 08:45 | RAD_ITS ---
EXAM: XR LEFT TIBIA AND FIBULA, 2 VIEWS CLINICAL INDICATION: mass TECHNIQUE: Frontal and lateral views of the left tibia and fibula. This report was created using [employer] report generation technology. COMPARISON: None. FINDINGS: BONES/JOINTS: Unremarkable. No acute fracture. No subluxation. Normal alignment. Preservation of the joint space. No sclerotic or destructive changes observed. SOFT TISSUES: Unremarkable. No soft tissue swelling or gas. No radiopaque foreign body. RAD/Tibia & Fibula 2 Views IMPRESSION: Negative left tibia and fibula x-rays. Electronically Signed: Leighton Lutz MD at 23:46 EST ,
== END | disposition home or self-care (01) ==
LOC: RAD 08:45
PROVIDERS: PCP Family Medicine; Visit Provider Surgery
DX: M79.606 Pain in leg, unspecified (principal); R22.40 Localized swelling, mass and lump, unspecified lower limb
CPT/HCPCS: 73590

== ENCOUNTER → 2022-09-26 | Outpatient (CLI) | payer MEDICARE, SELFPAY ==
[2022-09-26 10:36] LABS: ALB/GLOB Ratio 0.9 RATIO (0.9-2.4); AST(SGOT) 16 U/L (15-37); Alanine Aminotransfer ALT/SGPT 22 U/L (13-56); Albumin, Serum 3.5 g/dL (3.2-5.0); Alkaline Phosphatase 121 U/L (45-117); Anion Gap 7 (5-15); BUN 16 mg/dL (7-18); BUN/Creat Ratio 18.5 RATIO (10-20); Calcium,Total 9.3 mg/dL (8.5-10.1); Chloride 99 mmol/L (98-107); Creatinine, Serum 0.87 mg/dL (0.55-1.02); EST Glomerular Filtration Rate 66 mL/min (>60); Est Glom Filt Rate - Afr Amer 79 mL/min (>60); Free T3 2.9 pg/mL (2.18-3.98); Globulin 3.7 g/dL (2.2-4.2); Glucose 97 mg/dL (74-106); Potassium 4.3 mmol/L (3.5-5.1); Protein, Total 7.2 g/dL (6.4-8.2); Sodium Level 136 mmol/L (136-145); T4 Free Direct 1.34 ng/dL (0.76-1.46); Thyroid Stim Hormone (TSH) 0.39 uIU/mL (0.358-3.74)
== END | disposition home or self-care (01) ==
LOC: MFPLAB 08:08
PROVIDERS: PCP Family Medicine; Referring Provider Family Medicine; Visit Provider Family Medicine
DX: E03.9 Hypothyroidism, unspecified (principal); I10 Essential (primary) hypertension
CPT/HCPCS: 36415; 80053; 84439; 84443; 84481

== ENCOUNTER → 2022-11-10 | Outpatient (CLI) | payer MEDICARE, SELFPAY ==
[2022-11-10 18:15] LABS: Vitamin B12 388 pg/mL (211-911)
[2022-11-10 18:33] LABS: Ferritin 87 ng/mL (8-252)
== END | disposition home or self-care (01) ==
LOC: MTLAB 14:10
PROVIDERS: PCP Family Medicine; Referring Provider Family Medicine; Visit Provider Family Medicine
DX: G25.81 Restless legs syndrome (principal); R53.83 Other fatigue
CPT/HCPCS: 36415; 82607; 82728; 82746

== ENCOUNTER → 2022-12-01 | Outpatient (CLI) | payer MEDICARE, SELFPAY ==
--- NOTE | 2022-12-01 09:50 | ECHOD_ITS ---
Reason For Study: ENDOCARDITIS (VALVE NOT SPECIFIED) Procedure This was a 2D Doppler, Color Flow transthoracic echocardiogram. Exam performed in department. Left Ventricle Normal LV size. Left ventricular systolic function is normal. The estimated ejection fraction is 60 %. Stage 1 diastolic dysfunction. No regional wall motion abnormalities noted. Right Ventricle Normal RV size. Normal systolic function. Atria Normal left atrium. Normal right atrium. Mitral Valve There is moderate mitral annular calcification. Tricuspid Valve Normal tricuspid valve. Mild (1+) tricuspid valve insufficiency. Pulmonary artery systolic pressure is 34 mmHg. Aortic Valve Trisinus/trileaflet aortic valve. Moderate focal aortic valve calcification. Great Vessels Normal aortic root. The pulmonary artery is normal size. Normal inferior vena cava. Pericardium/Pleural No pericardial effusion. MMode/2D Measurements & Calculations LVIDd: 4.3 cm IVSd: 0.82 cm Ao root diam: 3.3 cm LVIDs: 2.9 cm LVPWd: 0.88 cm RVDd: 2.8 cm FS: 31.6 % LAV(MOD-bp): 54.1 ml EDV(MOD-sp4): 64.9 ml EDV(MOD-sp2): 49.3 ml LAV(MOD-bp) Indexed: 35.4 ml/m2 ESV(MOD-sp4): 27.3 ml ESV(MOD-sp2): 19.8 ml LAV(MOD-sp2): 50.3 ml EF(MOD-sp4): 57.9 % EF(MOD-sp2): 59.8 % LAV(MOD-sp4): 50.3 ml SV(MOD-sp4): 37.6 ml SV(MOD-sp2): 29.5 ml LA A4 area: 17.6 cm2 LA dimension(2D): 3.5 cm RA A4 area: 14.3 cm2 Time Measurements MV dec time: 0.17 sec Doppler Measurements & Calculations MV E max indra: 85.5 cm/sec Lat Peak E' Indra: 5.7 cm/sec Med Peak E' Indra: 7.2 cm/sec MV A max indra: 111.6 cm/sec E/E' lat: 14.9 E/E' med: 11.9 MV E/A: 0.77 MV dec slope: 534.7 cm/sec2 Ao V2 max: 185.9 cm/sec LV V1 max: 77.6 cm/sec Ao max P.8 mmHg LV V1 max P.4 mmHg Ao V2 mean: 134.9 cm/sec LV V1 mean P.3 mmHg Ao mean P.2 mmHg LV V1 mean: 52.3 cm/sec Ao V2 VTI: 47.2 cm LV V1 VTI: 18.5 cm AV (velocity ratio): 0.39 MR max indra: 479.4 cm/sec PA V2 max: 66.2 cm/sec TR max indra: 268.4 cm/sec MR max P.0 mmHg TR max P.8 mmHg MR mean indra: 379.9 cm/sec MR mean P.0 mmHg MR VTI: 160.7 cm ECHO/Echo Complete Interpretation Summary Normal LV size. Left ventricular systolic function is normal. The estimated ejection fraction is 60 %. Stage 1 diastolic dysfunction. Pulmonary artery systolic pressure is 34 mmHg. Ordering Physician: Dakotah Lester Referring Physician: Dakotah Lester Performed By: Lazara Willis, LESLYE, RVT
== END | disposition home or self-care (01) ==
LOC: CVS 09:49
PROVIDERS: PCP Family Medicine; Referring Provider Family Medicine; Visit Provider Family Medicine
DX: I38 Endocarditis, valve unspecified (principal)
CPT/HCPCS: 93306

== ENCOUNTER → 2023-02-13 | Outpatient (CLI) | payer MEDICARE, SELFPAY ==
--- NOTE | 2023-02-13 15:01 | RAD_ITS ---
INDICATION: FALL, LEFT SIDE EXAMINATION/TECHNIQUE: X-RAY - XR Ribs Unilateral Min 2 Views COMPARISON: None. FINDINGS: SOFT TISSUES: No soft tissue swelling or gas. BONES: 1. No displaced fracture. No sclerotic or destructive changes observed. 2. There is a mild thoracolumbar scoliosis and postoperative changes in the lower lumbar spine with pedicle screw placement. VISUALIZED LUNGS: Clear. No pneumothorax. RAD/Ribs Unil 2V No CXR IMPRESSION: 1. No evidence of displaced rib fracture. Electronically Signed: Antwon Layne MD at 18:06 EDT ,
--- NOTE | 2023-02-13 15:01 | RAD_ITS ---
INDICATION: LEFT HIP PAIN EXAMINATION/TECHNIQUE: X-RAY - XR Hip Unilateral with Pelvis when performed; 2-3 Views COMPARISON: No relevant prior comparison study available FINDINGS: PELVIC BONES: No displaced fracture, destructive or sclerotic lesions. Note that overlapping bowel shadows may however obscure fine detail. Sacroiliac joints are unremarkable. No widening of the pubic symphysis. HIPS: Normal appearance of the joint space. Marginal osteophyte formation is noted at the LEFT of the acetabulum. No displaced fracture seen in this frontal view. SOFT TISSUES: No soft tissue swelling or gas. RAD/HIP, UNI W/ Pelvis 2-3 Views IMPRESSION: 1. Mild degenerative change, mild osteophyte formation at the LEFT of the acetabulum however no evidence fracture destructive bony process or dislocation. Electronically Signed: Antwon Layne MD at 18:04 EDT ,
--- NOTE | 2023-02-13 15:02 | RAD_ITS ---
INDICATION: FLANK PAIN LOWER BACK PAIN. PT FELL ON 01/27/2023. HX OF PREVIOUS SURGERY IN 2014 EXAMINATION/TECHNIQUE: X-RAY - XR Spine Lumbar 2 or 3 Views COMPARISON: None. FINDINGS: Surgical hardware with posterior vertical bars and pedicle screws at L3-4. The vertebral bodies are grossly normal in height. Disc space narrowing and osteophytes L1-L3, and lower levels. There is minimal retrolisthesis of L1 on L2, and anterolisthesis of L4 on L5. Moderate curvature lower thoracic/lumbar curve convex left. No paravertebral soft tissue mass identified. RAD/Lumbar Spine 2 or 3 Views IMPRESSION: No definite evidence of acute fracture or traumatic subluxation. Postsurgical changes at L3-4. Extensive degenerative changes and scoliosis with retrolisthesis at L1-2 and anterolisthesis at L4-5. Electronically Signed: Jory Bocanegra MD at 18:02 EDT ,
== END | disposition home or self-care (01) ==
LOC: RAD 15:00
PROVIDERS: PCP Family Medicine; Referring Provider Family Medicine; Visit Provider Family Medicine
DX: M25.552 Pain in left hip (principal); R10.9 Unspecified abdominal pain; W19.XXXA Unspecified fall, initial encounter
CPT/HCPCS: 71100; 72100; 73502

== ENCOUNTER 2023-07-06 15:53 | Outpatient (RCR) | payer MEDICARE, SELFPAY | END 2023-07-06 19:00 | disposition home or self-care (01) | LOC: PT 15:53 | PROVIDERS: PCP Family Medicine; Referring Provider Family Medicine; Visit Provider Family Medicine | DX: G25.81 Restless legs syndrome (principal) | CPT/HCPCS: 97110; 97161 ==

== ENCOUNTER → 2023-12-04 | Outpatient (CLI) | payer MEDICARE, SELFPAY ==
[2023-12-04 08:30] LABS: AST(SGOT) 17 U/L (15-37); Alanine Aminotransfer ALT/SGPT 19 U/L (13-56); Albumin, Serum 3.4 g/dL (3.2-5.0); Alkaline Phosphatase 135 U/L (45-117); Bilirubin, Direct 0.18 mg/dL (0.00-0.30); Cholesterol 239 mg/dL (200); Globulin 3.8 g/dL (2.2-4.2); High Density Lipoprotein 81 mg/dL; Protein, Total 7.2 g/dL (6.4-8.2); Triglycerides 216 mg/dL; Very Low Density Lipoprotein 43 mg/dL (5-40)
== END | disposition home or self-care (01) ==
PROVIDERS: PCP Family Medicine; Referring Provider Physician Assistant Medical; Visit Provider Physician Assistant Medical
DX: E78.00 Pure hypercholesterolemia, unspecified (principal)
CPT/HCPCS: 36415; 80061; 80076

== ENCOUNTER 2024-01-30 08:10 | Emergency (ER) | payer MEDICARE, SELFPAY ==
[2024-01-30 08:11] VITALS: BP 151/72; PULSE 81; RESP 16; TEMP 36; O2SAT 98; BMI 21.4
[2024-01-30 08:13] VITALS: BP 151/72; PULSE 81; RESP 16; TEMP 36; O2SAT 98
--- NOTE | 2024-01-30 08:33 | CT_ITS ---
EXAM: CT NECK WITH INTRAVENOUS CONTRAST CLINICAL INDICATION: left facial swelling, throat pain TECHNIQUE: Helically acquired images were obtained of the neck with intravenous contrast. This CT exam was performed using one or more of the following dose reduction techniques: automated exposure control, adjustment of the mA and/or kV according to patient size, and/or use of iterative reconstruction technique. CONTRAST: IV 100mL [id number] COMPARISON: No relevant prior studies available. FINDINGS: NASOPHARYNX: Normal. SUPRAHYOID NECK: Normal. Oropharynx, oral cavity, parapharyngeal space and retropharyngeal space are unremarkable. INFRAHYOID NECK: Normal. The larynx, hypopharynx and supraglottis are unremarkable. SUBMANDIBULAR/PAROTID GLANDS: Diffuse contrast enhancement of the enlarged left parotid gland consistent with parotiditis. THYROID: Thyroid gland is atrophic. DENTAL: Oropharynx not well visualized due to significant streak artifacts from the dental fillings. Calcifications along the left sublingual region suggestive of salivary duct stones. BONES/JOINTS: No suspicious lytic or blastic abnormality. SOFT TISSUES: Normal. VASCULATURE: No acute findings. LYMPH NODES: Normal. No lymphadenopathy. LUNG APICES: Heterogeneous density of the lungs suggestive of air trapping related to small airway disease. CT/Soft Tissue Neck WITH Contrast IMPRESSION: 1. 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 2. Thyroid gland atrophy. Electronically Signed: Damion Dasilva MD at 10:06 EDT Reading Location ID and State: [facility] / [place] Tel , Service support ,
--- NOTE | 2024-01-30 08:35 | EX.ED.DYSGE1 ---
HPI History of Present Illness Chief Complaint: Edema Narrative Narrative: 88-year-old female presents with her because of swelling of her left jaw and face that started , 3 days ago. She was getting ready in the evening, she noticed swelling of her left jaw/parotid gland area. It was bright red. Her relative who is an RN told her that she needed to be seen by a doctor. She saw Dr. Jett yesterday and was placed on ciprofloxacin. She took a dose, but when she woke up this morning, when she tried to eat breakfast, she became very flushed and nauseated. Then she began having pain under her chin. No true difficulty swallowing. However, she was told by her primary care provider that if her symptoms worsen or change that she should come to the ED for evaluation and CT scanning. [facility] Medical History COVID-19 virus detected (05/18/20) Asymmetrical breasts Essential (primary) hypertension Screening for intestinal cancer Breast asymmetry in female Nonrheumatic mitral (valve) prolapse Aortic valve sclerosis Orthopnea Abnormal electrocardiogram Hypothyroidism Hyperlipidemia Insomnia Home Medications ?Medication ?Instructions ?Recorded ?Last Taken ?Type calcium citrate 500 mg (2,376 mg) 500 mg PO BID 08/04/17 Unknown History effervescent tablet cholecalciferol (vitamin D3) 25 1,000 unit PO QDAY 08/04/17 Unknown History mcg (1,000 unit) capsule multivitamin 1 tab PO QDAY 08/04/17 Unknown History pravastatin 40 mg tablet 40 mg PO QHS 08/04/17 Unknown History trazodone 50 mg tablet 25 mg PO QHS 08/04/17 Unknown History indapamide 1.25 mg tablet 1.25 mg PO .M/W/F 08/09/19 Unknown History azelastine 0.05 % eye drops 1 drp ophthalmic (eye) BID PRN 08/14/20 Unknown History ALLERGIES ropinirole 0.5 mg tablet 0.5 mg PO QHS 08/14/20 Unknown History levothyroxine 75 mcg tablet 75 mcg PO DAILY 09/16/21 Unknown History (Euthyrox) ropinirole 0.25 mg tablet 0.25 mg PO QAM 07/10/22 Unknown History ascorbic acid (vitamin C) 500 mg 500 mg PO DAILY 10/31/22 Unknown History capsule benazepril 5 mg tablet 10 mg PO QHS 10/31/22 Unknown History ropinirole 1 mg tablet 1 mg PO QHS 10/31/22 Unknown History ciprofloxacin HCl 500 mg tablet 500 mg PO BID 01/30/24 Unknown History diltiazem HCl 60 mg 60 mg PO BID 01/30/24 Unknown History capsule,extended release 12 hr Allergy/AdvReac Type Severity Reaction Status Date / Time penicillin G Allergy hives Verified 01/30/24 08:14 clindamycin AdvReac yeast Verified 01/30/24 08:14 infection Family History Brother CAD (coronary artery disease) age 50 from an [facility] Father Heart disease CHF Surgical History History of hysterectomy Previous back surgery (2013) Social History Smoking Status: Never smoker alcohol intake: current alcohol intake frequency: holidays/special occasions only Alcohol type: wine substance use type: does not use caffeine: No ROS ROS ED ROS Narrative Constitutional: No fever, no chills. HEENT: No sore throat. No neck pain. No loss of vision. No rhinorrhea. Positive swelling left parotid gland area. Positive redness-improved. No difficulty swallowing. Cardiovascular: No chest pain. No palpitations. No pedal edema. Respiratory: No cough, no shortness of breath. Abdominal: No abdominal pain. No nausea. No vomiting. Genitourinary: No dysuria. No hematuria. Musculoskeletal: No myalgias. No arthralgias. Neurologic: No headaches. No dizziness. No lightheadedness. Skin: No rash. No change in color. Psychiatric: No depression. No anxiety. EXAM Physical Exam Narrative Exam Narrative: Afebrile. Vital signs noted. Nontoxic-appearing. Regular rate and rhythm. Lungs clear to auscultation bilaterally. Abdomen soft nontender with normoactive bowel sounds. HEENT examination shows mild swelling of the left parotid area with minimal erythema. Mild tenderness to palpation. Airway patent. No drooling or trismus. No crepitance of neck. Const Vital Signs: 01/30/24 08:11 01/30/24 08:13 08/03/24 08:21 Temperature 96.8 F L 96.8 F L Temperature Source Temporal Temporal Pulse Rate 81 81 Respiratory Rate 16 16 Respiratory Effort Normal Non-Labored Blood Pressure 151/72 H 151/72 H Blood Pressure Mean 98 98 Pulse Ox 98 98 Oxygen Delivery Method Room Air Room Air 01/30/24 10:00 Temperature 97.8 F Temperature Source Temporal Pulse Rate 77 Respiratory Rate 18 Respiratory Effort Blood Pressure 150/77 H Blood Pressure Mean 101 Pulse Ox 98 Oxygen Delivery Method Room Air MDM MDM MDM Narrative Medical decision making narrative: Differential diagnosis includes parotitis versus salivary gland duct blockage versus Lorenzo angina. I have low concern for deep tissue airspace infection/abscess placed on the patient's clinical examination. I did review her allergy list and she has allergies to penicillin and clindamycin which is why she was probably placed on ciprofloxacin. CBC and BMP will be be obtained and she will be bolused normal saline to obtain CT imaging of the soft tissue of the neck with contrast. I reviewed her laboratory work and she has normal white count of 6.0, hemoglobin 13.0, hematocrit 40.4, platelet count normal at 213. Electrolyte panel is remarkable for creatinine of 1.04 with normal BUN of 16, glucose elevated at 149 but normal anion gap of 7. I reviewed the radiology report of the CT of the soft tissue neck with contrast. It was noted that she has left salivary gland duct calculi associated with parotitis. Airway is patent. At this point in time, I feel she can be discharged to follow-up with otolaryngology. She has seen Dr. Porter in the past. She will call the office on Thursday. She will continue her antibiotics that had been given to her by her primary care provider. She was also told that she should try sialagogues. I feel she can be discharged to follow-up. Return instructions to the emergency department reviewed. Disposition is discharged home in stable condition. History & Record Review Discussion w/independent historian: Patient Lab Data Attestation: I reviewed the patient's lab results. Labs: Laboratory Results - last 24 hr 01/30/24 08:50 WBC 6.0 RBC 4.35 Hgb 13.0 Hct 40.4 MCV 92.9 MCH 29.9 MCHC 32.2 RDW Std Deviation 41.2 RDW Coeff of Gasper 12.0 Plt Count 213 MPV 10.1 Immature Gran % (Auto) 0.300 Neut % (Auto) 61.0 Lymph % (Auto) 28.7 [place] % (Auto) 8.6 Eos % (Auto) 0.7 Baso % (Auto) 0.7 Absolute Neuts (auto) 3.7 Absolute Lymphs (auto) 1.73 Nucleated RBC % 0 Sodium 136 Potassium 3.5 Chloride 102 Carbon Dioxide 27.0 Anion Gap 7 BUN 16 Creatinine 1.04 H Estim Creat Clear Calc 31.67 Est GFR (MDRD) Af Amer 64 Est GFR (MDRD) Non-Af 53 L BUN/Creatinine Ratio 15.4 Glucose 149 H Calcium 9.1 Radiography Diagnostic Testing: Clinical Impression(s) from Imaging Studies Soft Tissue Neck CT 01/30/24 08:33 IMPRESSION: 1. 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 2. Thyroid gland atrophy. Electronically Signed: Damion Dasilva MD at 10:06 EDT Reading Location ID and State: [facility] / [place] Tel , Service support , Discharge Plan Triage Chief Complaint: Edema ED Provider: Leonides Vila Dx/Rx/DC Orders Clinical Impression: Parotiditis, Salivary duct calculi Instructions: ED Salivary Gland Infection, ED Salivary Gland Stones Prescriptions: No Action pravastatin 40 mg tablet 40 mg PO QHS cholecalciferol (vitamin D3) 1,000 unit capsule 1,000 unit PO QDAY calcium citrate 500 mg tablet, effervescent 500 mg PO BID multivitamin tablet 1 tab PO QDAY trazodone 50 mg tablet 25 mg PO QHS indapamide 1.25 mg tablet 1.25 mg PO .M/W/ ascorbic acid (vitamin C) 500 mg capsule 500 mg PO DAILY ropinirole 0.5 mg tablet 0.5 mg PO QHS azelastine 0.05 % drops 1 drp OPHTHALMIC BID PRN (Reason: ALLERGIES) levothyroxine [Euthyrox] 75 mcg tablet 75 mcg PO DAILY ropinirole 0.25 mg tablet 0.25 mg PO QAM Rx Instructions: administer 1-3 hours before bedtime benazepril 5 mg tablet 10 mg PO QHS ropinirole 1 mg tablet 1 mg PO QHS Patient Comments: TAKE 1 TABLET BY MOUTH AT BEDTIME ciprofloxacin HCl 500 mg tablet 500 mg PO BID diltiazem HCl 60 mg capsule,extended release 12 hr 60 mg PO BID Primary Care Provider: Dakotah Lester Referrals: Dakotah Lester MD [Primary Care Provider] - Gab Porter MD [Med Staff - Active Staff] - 2 Days Activity Restrictions/Additional Instructions: Continue the antibiotic you are given by your primary care provider. Follow-up with otolaryngology by calling the office on Thursday for an appointment to be seen. Return with fever, increased pain, new or worsening symptoms. Print Language: [place] Disposition Disposition: Home, Self Care
[2024-01-30] MEDS: 0.9% Normal Saline (1000mL) 1,000 ML 1000 ML IV (08:48)
[2024-01-30 09:06] LABS: Absolute Lymphocyte Count 1.73 X10^3/uL (0.83-4.51); Absolute Neutrophil Count 3.7 X10^3/uL (2.0-7.7); Basophil# 0.04 X10^3/uL; Basophil% 0.7 % (0-1); Eosinophil# 0.04 X10^3/uL; Eosinophils% 0.7 % (0-5); Hematocrit 40.4 % (37-47); Lymphocyte # 1.73 X10^3/ul (0.83-4.51); Lymphocyte % 28.7 % (19-41); Mean Corp Hgb Conc 32.2 g/dL (32-36); Mean Corpuscular Hgb 29.9 pg (27.0-32.0); Mean Corpuscular Volume 92.9 fL (81-99); Mean Platelet Vol. 10.1 fl (6.2-12.0); Monocyte# 0.52 X10^3/uL; Monocyte% 8.6 % (0-10); NRBC Flagged by Analyzer 0 % (0-5); Neutrophil # 3.68 X10^3/uL (2.7-7.7); POSITIVE COUNT YES; Platelet Count 213 K/mm3 (150-450); RBC Distribution Width SD 41.2 fl (35.1-43.9); Red Blood Count 4.35 M/mm3 (4.2-5.4)
[2024-01-30 09:17] LABS: Anion Gap 7 (5-15); BUN 16 mg/dL (7-18); BUN/Creat Ratio 15.4 RATIO (10-20); Calcium,Total 9.1 mg/dL (8.5-10.1); Chloride 102 mmol/L (98-107); Creatinine, Serum 1.04 mg/dL (0.55-1.02); EST Glomerular Filtration Rate 53 mL/min (>60); Est Glom Filt Rate - Afr Amer 64 mL/min (>60); Estimated Creatinine Clearance 31.67 ml/min; Glucose 149 mg/dL (74-106); Potassium 3.5 mmol/L (3.5-5.1); Sodium Level 136 mmol/L (136-145)
[2024-01-30 10:00] VITALS: BP 150/77; PULSE 77; RESP 18; TEMP 36.6; O2SAT 98
[2024-01-30 10:20] LABS: Differential Indicated SCAN CRITERIA MET
[2024-01-30 10:47] VITALS: BP 150/77; PULSE 79; RESP 18; TEMP 36.6; O2SAT 98
== END 2024-01-30 10:57 | disposition home or self-care (01) ==
PROVIDERS: Emergency Provider Emergency Medicine; PCP Family Medicine; Visit Provider Emergency Medicine
DX: K11.5 Sialolithiasis (principal); K11.20 Sialoadenitis, unspecified; I10 Essential (primary) hypertension; E78.5 Hyperlipidemia, unspecified; E03.9 Hypothyroidism, unspecified; Z79.890 Hormone replacement therapy; Z79.899 Other long term (current) drug therapy
CPT/HCPCS: 70491; 80048; 85025; 96360; 96361; 99282; J7030; Q9967; A4216

== ENCOUNTER → 2024-02-23 | Outpatient (CLI) | payer MEDICARE, SELFPAY ==
[2024-02-23 18:06] LABS: ALB/GLOB Ratio 0.8 RATIO (0.9-2.4); AST(SGOT) 22 U/L (15-37); Alanine Aminotransfer ALT/SGPT 25 U/L (13-56); Albumin, Serum 3.1 g/dL (3.2-5.0); Alkaline Phosphatase 136 U/L (45-117); Anion Gap 7 (5-15); BUN 21 mg/dL (7-18); BUN/Creat Ratio 19.4 RATIO (10-20); Calcium,Total 9.3 mg/dL (8.5-10.1); Chloride 98 mmol/L (98-107); Creatinine, Serum 1.08 mg/dL (0.55-1.02); EST Glomerular Filtration Rate 51 mL/min (>60); Est Glom Filt Rate - Afr Amer 61 mL/min (>60); Globulin 3.8 g/dL (2.2-4.2); Glucose 131 mg/dL (74-106); Potassium 4.3 mmol/L (3.5-5.1); Protein, Total 6.9 g/dL (6.4-8.2); Sodium Level 133 mmol/L (136-145)
== END | disposition home or self-care (01) ==
LOC: MTLAB 15:23
PROVIDERS: PCP Family Medicine; Referring Provider Family Medicine; Visit Provider Family Medicine
DX: M25.473 Effusion, unspecified ankle (principal)
CPT/HCPCS: 36415; 80053

== ENCOUNTER → 2024-06-30 | Outpatient (CLI) | payer MEDICARE, SELFPAY ==
--- NOTE | 2024-06-30 12:15 | BI_ITS ---
MAMMOGRAPHY - BILATERAL SCREENING 3-D TOMOSYNTHESIS REASON FOR EXAM: Female, 88 years old. History of underdeveloped left breast PERTINENT HISTORY: No significant family history. TECHNIQUE: 2-D mammograms and 3-D Tomosynthesis of the breast (s) were performed. CAD was performed. COMPARISON: 06/26/2022 FINDINGS: The breast composition is heterogeneously dense that can obscure small breast masses. Left breast is again noted to be smaller than the right breast without underlying lesion or significant change since previous studies Scattered benign lucent centered calcifications are seen. No dense spiculated masses or suspicious microcalcifications are identified. No architectural distortion is identified. There is no skin thickening or retraction. BI/SCRN MAMM (CAD)W/RAMÓN BILAT IMPRESSION: No mammographic signs of malignancy. Routine yearly mammograms recommended. ASSESSMENT CATEGORY: BIRADS Category 2: Benign. A letter regarding these results will be sent to the patient by the facility within 30 days. FOLLOW UP RECOMMENDATION: Yearly follow up mammogram recommended. (A) Approximately 10% of breast cancers are not detected by mammography. A normal mammogram should not delay biopsy of a clinically suspicious abnormality. Electronically Signed: Wade Kelly MD at 13:50 EST ,
--- NOTE | 2024-06-30 12:15 | BD_ITS ---
EXAM: XR DEXA BONE DENSITY AXIAL CLINICAL INDICATION: M810 TECHNIQUE: Dual energy x-ray absorptiometry performed. Bone mineral density measurements were obtained of the lumbar spine and (optionally) the proximal femurs. Values are compared with gender matched average of normal, and with age, weight and ethnic origin (Z-score) and with healthy young adults (T-score). COMPARISON: No relevant prior studies available. FINDINGS: LUMBAR SPINE BONE MINERAL DENSITY: LUMBAR SPINE T-SCORE: The bone mobilization density in the lumbar spine was obtained at L1 and L2 which gave an average value of 1.159 g/sq cm and a T score of 1.6. RIGHT TOTAL FEMUR BONE MINERAL DENSITY: Total bone mineralization density in the right femoral neck is 0.770 g/sq cm which gave a T score of -1.4. LEFT TOTAL FEMUR BONE MINERAL DENSITY: The total bone mineralization density in the left femoral neck is 0.772 g/sq cm which gave a T score of -1.4. UNITS OF MEASURE: Bone mineral density is measured in g/cm2. Z-score is the number of standard deviations above age-matched controls. T-score is the number of standard deviations above healthy young adults. WORLD HEALTH ORGANIZATION GUIDELINES: T-score at or above -1 is normal bone mineral density. T-score between -1 and -2.5 is osteopenia. T-score at or below -2.5 is osteoporosis. BD/Dexa Bone Density Study IMPRESSION: Bone mineralization density compatible osteopenia in the femoral maxilla within normal limits in the lumbar spine. Electronically Signed: Gregg Cardozo MD at 0:05 EST ,
== END | disposition home or self-care (01) ==
LOC: OPBD 12:13
PROVIDERS: PCP Family Medicine; Referring Provider Surgery; Visit Provider Surgery
DX: Z12.31 Encounter for screening mammogram for malignant neoplasm of breast (principal); N64.89 Other specified disorders of breast; Z13.820 Encounter for screening for osteoporosis; M81.0 Age-related osteoporosis without current pathological fracture
CPT/HCPCS: 77063; 77067; 77080

== ENCOUNTER 2024-08-11 11:12 | Emergency (ER) | payer MEDICARE, SELFPAY ==
[2024-08-11 11:13] VITALS: BP 103/89; PULSE 77; RESP 16; TEMP 36.4; O2SAT 95; BMI 20.7
--- NOTE | 2024-08-11 11:32 | CT_ITS ---
EXAM: Noncontrasted CT of the head, with sagittal and coronal reconstructed images: CLINICAL HISTORY: Head injury. Laceration to top of head. COMPARISON: None. TECHNIQUE: Noncontrasted CT of the head, with sagittal and coronal reconstructed images. FINDINGS: No radiopaque foreign body is seen. The visualized paranasal sinuses appear clear, as do the mastoid air cells No intracranial hemorrhage, mass, or mass effect is seen. Ventricles appear symmetric and within the normal range for age. No extra-axial fluid collection is noted. Bilateral cerebral white matter hypodensities, predominantly periventricular, most consistent with chronic ischemic changes of small-vessel disease. CT/Brain/Head without Contrast IMPRESSION: No intracranial hemorrhage or other acute process is seen. Reading Location: [id number]
--- NOTE | 2024-08-11 11:33 | EX.ED.DYSGE1 ---
HPI History of Present Illness Chief Complaint: Head Injury Detail of Chief Complaint: Head injury Informant: patient and spouse/S.O. Narrative Narrative: Patient presents to the emergency department with a head injury that occurred this morning. Patient states that she was cleaning the shower when she stood up she hit her head on the spigot causing a laceration to the top of her head. She states there was blood immediately. Patient unsure of her last tetanus shot. She denies loss of consciousness. She denies neck pain. She denies significant headache. She is not anticoagulated. [facility] Medical History COVID-19 virus detected (05/18/20) Asymmetrical breasts Essential (primary) hypertension Screening for intestinal cancer Breast asymmetry in female Nonrheumatic mitral (valve) prolapse Aortic valve sclerosis Orthopnea Abnormal electrocardiogram Hypothyroidism Hyperlipidemia Insomnia Home Medications ?Medication ?Instructions ?Recorded ?Last Taken ?Type calcium citrate 500 mg (2,376 mg) 500 mg PO BID 08/04/17 Unknown History effervescent tablet cholecalciferol (vitamin D3) 25 1,000 unit PO QDAY 08/04/17 Unknown History mcg (1,000 unit) capsule multivitamin 1 tab PO QDAY 08/04/17 Unknown History pravastatin 40 mg tablet 40 mg PO QHS 08/04/17 Unknown History trazodone 50 mg tablet 25 mg PO QHS 08/04/17 Unknown History indapamide 1.25 mg tablet 1.25 mg PO .M/W/F 08/09/19 Unknown History azelastine 0.05 % eye drops 1 drp ophthalmic (eye) BID PRN 08/14/20 Unknown History ALLERGIES ropinirole 0.5 mg tablet 0.5 mg PO QHS 08/14/20 Unknown History levothyroxine 75 mcg tablet 75 mcg PO DAILY 09/16/21 Unknown History (Euthyrox) ropinirole 0.25 mg tablet 0.25 mg PO QAM 07/10/22 Unknown History ascorbic acid (vitamin C) 500 mg 500 mg PO DAILY 10/31/22 Unknown History capsule benazepril 5 mg tablet 10 mg PO QHS 10/31/22 Unknown History ropinirole 1 mg tablet 1 mg PO QHS 10/31/22 Unknown History ciprofloxacin HCl 500 mg tablet 500 mg PO BID 01/30/24 Unknown History diltiazem HCl 60 mg 60 mg PO BID 01/30/24 Unknown History capsule,extended release 12 hr Allergy/AdvReac Type Severity Reaction Status Date / Time penicillin G Allergy hives Verified 08/11/24 11:16 clindamycin AdvReac yeast Verified 08/11/24 11:16 infection Family History Brother CAD (coronary artery disease) age 50 from an [place] Father Heart disease CHF Surgical History History of hysterectomy Previous back surgery (2013) Social History Smoking Status: Never smoker alcohol intake: current alcohol intake frequency: holidays/special occasions only Alcohol type: wine substance use type: does not use caffeine: No ROS ROS ED Review of Systems ROS Unobtainable: other Constitutional Constitutional ED: Reports lethargy; Denies chills, fever(s), sweats or weight loss Eyes Eyes: Denies blurry vision, change in vision or diplopia ENT ENT ED: Reports other Details: Scalp laceration ; Denies rhinorrhea or sore throat Cardiovascular Cardiovascular: Denies chest pain, orthopnea or racing heartbeat Respiratory/Chest Respiratory/Chest: Denies cough, dyspnea, dyspnea on exertion, orthopnea or sputum Gastrointestinal Gastrointestinal: Denies abdominal pain, diarrhea, nausea or vomiting Genitourinary Genitourinary ED: Denies dysuria, hematuria or urinary frequency Musculoskeletal Musculoskeletal: Denies arthralgias, back pain, myalgias or neck pain Integumentary Denies abscess, Abrasions or rash Neurologic Neurologic: Denies headache(s) or weakness Psychiatric Psychiatric: Denies anxiety, depression or suicidal thoughts Endocrine Endocrinology: Denies polydipsia, polyphagia or polyuria Hematologic/Lymphatic Hematologic/Lymphatic: Denies easy bleeding, easy bruising or lymphadenopathy Allergic/Immunologic Allergic/Immunologic ED: Denies mouth swelling, tongue swelling or urticaria EXAM Physical Exam Const Vital Signs: 08/11/24 11:13 08/11/24 11:27 Temperature 97.6 F L Temperature Source Oral Pulse Rate 77 Respiratory Rate 16 Respiratory Effort Normal Respiratory Depth Normal Respiratory Pattern Normal Blood Pressure 103/89 H Blood Pressure Mean 93 Pulse Ox 95 Oxygen Delivery Method Room Air Room Air Positive well nourished and well developed General Appearance ED: well developed and NAD HEENT Reports TM's clear and moist mucous membranes HEENT Narrative: Patient has a 1 cm laceration to the top of the head right parietal. No bony step-offs or depressions. No significant active bleeding currently. Wound edges are well-approximated. normocephalic and atraumatic; Negative for trauma or tenderness Tympanic Membrane ED: Yes TM's clear Eyes PERRL and EOMs intact bilaterally General Eye ED: Negative for pale conjunctiva or scleral icterus Neck no lymphadenopathy, supple and no JVD General: Negative for tenderness Chest Wall inspection of chest normal and palpation of chest normal Chest: Negative for tenderness Resp normal respiratory effort and clear to auscultation bilaterally Effort and Inspection: Negative for respiratory distress or pain with movement Auscultation: Negative for rhonchi, wheezes or diminished lung sounds Cardio regular rate, regular rhythm, S1 normal heart sound, S2 normal heart sound and no murmurs Peripheral Pulses: pulses 2+ throughout GI normal to inspection, nondistended, normoactive bowel sounds, soft to palpation, non-tender, non-distended and no masses Back/Spine no CVA tenderness and no thoracic nor lumbar tenderness Extremity normal to inspection General Extremety ED: Negative for edema General Extremity: Negative for edema Neuro oriented x3, CN's II-XII intact bilaterally, no sensory deficits noted and gait normal Sensorium / Orientation: awake, alert, oriented to person, oriented to place and oriented to time Motor Exam: strength 5/5 throughout and strength abnormal Psych mental status grossly normal Skin no rashes or lesions noted and no wounds MDM MDM MDM Narrative Medical decision making narrative: Patient with injury to her head. I feel this is amenable to Dermabond repair. Will obtain a CT scan of the brain without contrast to rule out intracranial hemorrhage and skull fracture. Will give Adacel tetanus booster. CT scan of the brain unremarkable. Patient had Dermabond repair of her scalp wound. She received tetanus booster. Will follow-up with her primary care physician in 3 to 5 days for wound check. Advised to return if increasing pain, bleeding, or condition worsening way. Radiography Diagnostic Testing: Clinical Impression(s) from Imaging Studies Brain CT 08/11/24 11:32 IMPRESSION: No intracranial hemorrhage or other acute process is seen. Reading Location: [address] Discharge Plan Triage Chief Complaint: Head Injury ED Provider: Clarice Guthrie Dx/Rx/DC Orders Clinical Impression: Closed head injury, Laceration of scalp Instructions: ED Head Injury (Adult), ED Laceration, All Closures Prescriptions: No Action pravastatin 40 mg tablet 40 mg PO QHS cholecalciferol (vitamin D3) 1,000 unit capsule 1,000 unit PO QDAY calcium citrate 500 mg tablet, effervescent 500 mg PO BID multivitamin tablet 1 tab PO QDAY trazodone 50 mg tablet 25 mg PO QHS indapamide 1.25 mg tablet 1.25 mg PO .M// ascorbic acid (vitamin C) 500 mg capsule 500 mg PO DAILY ropinirole 0.5 mg tablet 0.5 mg PO QHS azelastine 0.05 % drops 1 drp OPHTHALMIC BID PRN (Reason: ALLERGIES) levothyroxine [Euthyrox] 75 mcg tablet 75 mcg PO DAILY ropinirole 0.25 mg tablet 0.25 mg PO QAM Rx Instructions: administer 1-3 hours before bedtime benazepril 5 mg tablet 10 mg PO QHS ropinirole 1 mg tablet 1 mg PO QHS Patient Comments: TAKE 1 TABLET BY MOUTH AT BEDTIME ciprofloxacin HCl 500 mg tablet 500 mg PO BID diltiazem HCl 60 mg capsule,extended release 12 hr 60 mg PO BID Primary Care Provider: Dakotah Lester Referrals: Dakotah Lester MD [Primary Care Provider] - 3-5 Days Print Language: Kiswahili Disposition Disposition: Home, Self Care
[2024-08-11] MEDS: Diphth,Pertuss(Acell),Tet Vac 0.5 ML Vial IM (11:43)
[2024-08-11 12:47] VITALS: BP 134/71; PULSE 69
== END 2024-08-11 12:47 | disposition home or self-care (01) ==
PROVIDERS: Emergency Provider Emergency Medicine; PCP Family Medicine; Visit Provider Emergency Medicine
DX: S01.01XA Laceration without foreign body of scalp, initial encounter (principal); W22.09XA Striking against other stationary object, initial encounter; Z23 Encounter for immunization; I10 Essential (primary) hypertension; E78.5 Hyperlipidemia, unspecified; E03.9 Hypothyroidism, unspecified; S09.90XA Unspecified injury of head, initial encounter; Z79.890 Hormone replacement therapy; Z79.899 Other long term (current) drug therapy
CPT/HCPCS: 12001; 70450; 90715; 99282